=== PATIENT | female | born 1950 | race Caucasian/White ===

== ENCOUNTER 2021-10-08 01:57 | Emergency (ER) | payer MEDICARE, MEDICAID ==
[~2021-10-08] VITALS: Ht 170.2 cm; Wt 71.7 kg
--- NOTE | 2021-10-08 02:27 | NUR ---
BIBS. TO ER BED 3. AAOX4. NOT IN RESPD DISTRESS. AMBULATORY. CAME IN FOR RIGHT MID BACK PAIN X YESTERDAY. PT REPORTS THAT IBUPROPHEN IS NOT WORKING. DENIES ANY TRAUMA NOR FALL. MD AT BEDSIDE FOR EVAL.
[2021-10-08] MEDS ORDERED: IBUP-1957 PO (02:30)
[2021-10-08] MEDS ORDERED: HYDR-3972 PO (02:30)
[2021-10-08] MEDS ORDERED: DEXAMETHASONE SOD PHOSPHATE 10 MG/ML VIAL ONE (02:30)
[2021-10-08] MEDS ORDERED: CARISOPRODOL 350 MG TABLET PO ONE (02:30)
[2021-10-08] MEDS ORDERED: KETOROLAC TROMETHAMINE INJ 60 MG/2 ML VIAL IM ONE ×2 (02:30)
[2021-10-08] MEDS ORDERED: PRED50TA PO (02:30)
[2021-10-08] MEDS ORDERED: DEXAMETHASONE SOD PHOSPHATE 4 MG/ML VIAL IM ONE (02:30)
[2021-10-08] MEDS ORDERED: CARI350T PO (02:30)
[2021-10-08] MEDS ORDERED: CARISOPRODOL 350 MG TABLET ONE (02:31)
--- NOTE | 2021-10-08 02:40 | NUR ---
SOMA WAS NOT GIVEN TO PATIENT BECAUSE SHE WILL BE DRIVING HOME. MD WAS MADE AWARE.
--- NOTE | 2021-10-08 03:35 | NUR ---
Patient discharged to home in stable condition. Written and verbal after care instructions given. Patient verbalizes understanding of instruction.
[2021-10-08 03:38] VITALS: BP 122/54
== END 2021-10-08 03:38 | disposition home or self-care (01) ==
LOC: ER 02:02
DX: M54.50 Low back pain, unspecified (principal); M62.838 Other muscle spasm; F17.200 Nicotine dependence, unspecified, uncomplicated; Z79.1 Long term (current) use of non-steroidal anti-inflammatories (NSAID); Z79.52 Long term (current) use of systemic steroids; Z79.899 Other long term (current) drug therapy
CPT/HCPCS: 96372; 99284; J1100; J1885